=== PATIENT | female | born 1980 | race Caucasian/White ===

== ENCOUNTER 2018-06-07 09:47 | Outpatient (CLI) | payer OTHER | END 2018-06-07 09:57 | disposition home or self-care (01) | LOC: RX STUDY 09:47 | DX: N93.0 Postcoital and contact bleeding (principal) ==

== ENCOUNTER 2018-10-31 11:11 | Outpatient (CLI) | payer OTHER | END 2018-10-31 17:00 | disposition home or self-care (01) | LOC: SONOGRAMA 11:11 | DX: Z34.01 Encounter for supervision of normal first pregnancy, first trimester (principal) ==

== ENCOUNTER → 2018-10-31 11:16 | Outpatient (CLI) | payer OTHER | END | disposition home or self-care (01) | LOC: LAB 11:15 | DX: Z34.01 Encounter for supervision of normal first pregnancy, first trimester (principal); Z11.4 Encounter for screening for human immunodeficiency virus [HIV] ==

== ENCOUNTER → 2019-08-16 | Outpatient (CLI) | payer OTHER | END | disposition home or self-care (01) | LOC: MRI 09:42 | DX: G40.802 Other epilepsy, not intractable, without status epilepticus (principal) | CPT/HCPCS: 70552 ==